=== PATIENT | female | born 2000 | race Caucasian/White ===

== ENCOUNTER 2021-08-12 14:36 | Emergency (ER) | payer OTHER ==
[2021-08-12] MEDS ORDERED: Tetracaine HCl/PF 0.5% 4 ML Bottle EYEBOTH STA (15:59)
[2021-08-12] MEDS ORDERED: Tetracaine HCl/PF 0.5% 4 ML Bottle ONE (16:00)
[2021-08-12 16:35] LABS: BLOOD UREA NITROGEN,BUN 10 mg/dL (7.0-18.0); CHLORIDE,CL 103 mmol/L (98-107); ESTIMATED GFR > 60.0 ml/min; GLUCOSE RANDOM 234 mg/dL (74-106); POTASSIUM,K 4.1 mmol/L (3.5-5.1); SODIUM,NA 141 mmol/L (136-145)
[2021-08-12 17:18] LABS: CORONAVIRUS COVID-19 NAA NEGATIVE (NEGATIVE); INFLUENZA A NAA NEGATIVE (NEGATIVE); INFLUENZA B NAA NEGATIVE (NEGATIVE)
[2021-08-12] MEDS ORDERED: Carboxymethylcellulose Sodium 0.5% Ophth Soln 0.4 ML UD Box of 30 EYELF STA (17:24)
[2021-08-12 17:52] VITALS: BP 138/65; PULSE 83
== END 2021-08-12 17:49 | disposition home or self-care (01) ==
LOC: MW.ED 14:36
DX: G51.0 Bell's palsy (principal); J06.9 Acute upper respiratory infection, unspecified; Z20.822 Contact with and (suspected) exposure to COVID-19
CPT/HCPCS: 0240U; 36415; 71045; 80048; 85025; 99285; 99283

== ENCOUNTER 2021-08-17 15:51 | Emergency (ER) | payer OTHER ==
[2021-08-17] MEDS ORDERED: Acetaminophen/oxyCODONE 325-5 MG Tab PO ONE (17:11)
[2021-08-17 17:41] VITALS: BP 124/70; PULSE 101
== END 2021-08-17 17:29 | disposition home or self-care (01) ==
LOC: MW.ED 15:51
DX: G51.0 Bell's palsy (principal)
CPT/HCPCS: 99283; A9270

== ENCOUNTER 2022-01-24 13:20 | Emergency (ER) | payer OTHER ==
[2022-01-24 14:59] LABS: ACETAMINOPHEN <2.0 ug/mL; BLOOD UREA NITROGEN,BUN 14 mg/dL (7.0-18.0); CARBON DIOXIDE,CO2 28.3 mmol/L (21.0-32.0); CHLORIDE,CL 104 mmol/L (98-107); GLUCOSE RANDOM 113 mg/dL (74-106); POTASSIUM,K 3.9 mmol/L (3.5-5.1); SODIUM,NA 140 mmol/L (136-145)
[2022-01-24 15:02] LABS: ESTIMATED GFR 92 mL/min (>60)
[2022-01-24 16:06] VITALS: BP 141/87; PULSE 91
== END 2022-01-24 16:20 | disposition home or self-care (01) ==
LOC: MW.ED 13:20
DX: F32.9 Major depressive disorder, single episode, unspecified (principal); Z79.899 Other long term (current) drug therapy; Z86.16 Personal history of COVID-19; Z20.822 Contact with and (suspected) exposure to COVID-19
CPT/HCPCS: 36415; 80053; 80143; 80179; 80305-QW; 80307; 81001; 81025; 83735; 84443; 85025; 93005; 93010; 99284; 99285; U0002

== ENCOUNTER 2022-04-06 07:24 | Emergency (ER) | payer OTHER ==
[2022-04-06] MEDS ORDERED: Oxymetazoline 0.05% Nasal Spray 30 ML Bottle NAS ONE (07:38)
[2022-04-06 07:46] VITALS: BP 150/91
[2022-04-06 08:39] VITALS: PULSE 78
== END 2022-04-06 08:38 | disposition home or self-care (01) ==
LOC: MW.ED 07:24
DX: R04.0 Epistaxis (principal); Z79.899 Other long term (current) drug therapy; Z86.16 Personal history of COVID-19
CPT/HCPCS: 30901; 99283

== ENCOUNTER 2022-04-07 07:28 | Emergency (ER) | payer OTHER ==
[2022-04-07 08:59] VITALS: BP 116/68; PULSE 88
== END 2022-04-07 08:58 | disposition home or self-care (01) ==
LOC: MW.ED 07:28
DX: R04.0 Epistaxis (principal); R42 Dizziness and giddiness; F17.210 Nicotine dependence, cigarettes, uncomplicated
CPT/HCPCS: 36415; 85025; 99284

== ENCOUNTER 2022-05-04 03:53 | Emergency (ER) | payer OTHER ==
[2022-05-04] MEDS ORDERED: Acetaminophen 325 MG Tab PO ONE (04:06)
[2022-05-04] MEDS ORDERED: Ibuprofen 600 MG Tab PO ONE (04:06)
[2022-05-04 04:48] LABS: CARBON DIOXIDE,CO2 19.1 mmol/L (21.0-32.0); POTASSIUM,K 3.4 mmol/L (3.5-5.1)
[2022-05-04 05:45] VITALS: BP 141/75; PULSE 88
== END 2022-05-04 05:40 | disposition home or self-care (01) ==
LOC: MW.ED 03:53
DX: J98.8 Other specified respiratory disorders (principal); R07.89 Other chest pain; B97.4 Respiratory syncytial virus as the cause of diseases classified elsewhere
CPT/HCPCS: 36415; 71046; 80053; 85025; 85379; 99283; A9270

== ENCOUNTER 2022-07-13 17:16 | Emergency (ER) | payer OTHER ==
[2022-07-13] MEDS ORDERED: Sodium Chloride 0.9% 1,000 ML IV ONE (17:23)
[2022-07-13 17:34] VITALS: BP 126/70; PULSE 100
[2022-07-13] MEDS ORDERED: Famotidine 20 MG/2 ML SDV IVPUSH ONE (17:36)
[2022-07-13] MEDS ORDERED: Alum Hydro/Mag Hydro/Simeth XS 15 ML, Lidocaine 2% 5 ML PO ONE ×2 (17:36)
[2022-07-13] MEDS ORDERED: Iopamidol 755 MG/ML 500 ML Multipack Bottle IVPUSH STA (18:37)
[2022-07-13] MEDS ORDERED: Acetaminophen 500 MG Tab PO ONE (19:15)
== END 2022-07-13 19:50 | disposition home or self-care (01) ==
LOC: MW.ED 17:16
DX: R10.13 Epigastric pain (principal); R91.1 Solitary pulmonary nodule; Z86.16 Personal history of COVID-19
CPT/HCPCS: 36415; 74177; 84703; 96361; 96374; 99284; A9270; J3490; J7030; Q9967

== ENCOUNTER 2022-07-22 09:02 | Day surgery (SDC) | payer OTHER ==
[~2022-07-22 09:02] MED LIST: Lactated Ringers 1,000 ML IV SCH
[2022-07-22] MEDS ORDERED: Lidocaine 2% 5 ML SDV ONE (09:30)
[2022-07-22] MEDS ORDERED: fentaNYL 100 MCG/2 ML SDV ONE (09:30)
[2022-07-22] MEDS ORDERED: Propofol 200 MG/20 ML SDV ONE (09:30)
[2022-07-22] MEDS ORDERED: Lactated Ringers 1,000 ML IV SCH (11:00)
[2022-07-22 12:06] VITALS: BP 95/50; PULSE 81
== END 2022-07-22 11:25 | disposition home or self-care (01) ==
LOC: MW.SDS 09:02
PROVIDERS: ATTEND Surgery
DX: K29.50 Unspecified chronic gastritis without bleeding (principal); K21.9 Gastro-esophageal reflux disease without esophagitis; F41.0 Panic disorder [episodic paroxysmal anxiety]; F32.A Depression, unspecified; G47.00 Insomnia, unspecified; Z79.899 Other long term (current) drug therapy
CPT/HCPCS: 43239; 81025; J2704; J3010; J7120; J3490

== ENCOUNTER 2023-02-25 22:06 | Emergency (ER) | payer OTHER ==
[2023-02-25 22:49] LABS: APPEARANCE,URINE CLEAR; BILIRUBIN,URINE NEGATIVE (NEGATIVE); COLOR,URINE YELLOW; GLUCOSE,URINE NEGATIVE (NEGATIVE); KETONES,URINE NEGATIVE (NEGATIVE); LEUKOCYTE ESTERASE,URINE NEGATIVE (NEGATIVE); NITRITE,URINE NEGATIVE (NEGATIVE); OCCULT BLOOD,URINE NEGATIVE (NEGATIVE); PROTEIN,URINE NEGATIVE (NEGATIVE); UROBILINOGEN,URINE 0.2 EU/dL (<2.0)
[2023-02-25] MEDS ORDERED: Sucralfate Suspension 1 GM/10 ML Cup PO ONE (23:50)
[2023-02-25] MEDS ORDERED: Sodium Chloride 0.9% 2.5 ML Syringe FLUSH PRN (23:50)
[2023-02-25] MEDS ORDERED: Sodium Chloride 0.9% 10 ML Syringe FLUSH PRN (23:50)
[2023-02-25] MEDS ORDERED: Famotidine 20 MG/2 ML SDV IVPUSH ONE (23:50)
[2023-02-25] MEDS ORDERED: Dicyclomine 10 MG Cap PO ONE (23:50)
[2023-02-25] MEDS ORDERED: Ondansetron 4 MG/2 ML SDV IVPUSH ONE (23:50)
[2023-02-26 00:48] LABS: BASOPHILS PERCENT AUTO 0.2 % (0.0-1.5); EOSINOPHILS PERCENT AUTO 0.5 % (0.0-7.0); HEMOGLOBIN 11.5 g/dL (12.0-16.0); LYMPHOCYTES ABSOLUTE AUTO 3.5 K/uL (0.6-2.4); LYMPHOCYTES PERCENT AUTO 39.6 % (16.0-40.0); MEAN CORPUSCULAR HGB CONC 32.9 g/dL (31.0-37.0); MEAN CORPUSCULAR VOLUME 88.4 fL (80.0-98.0); MONOCYTES ABSOLUTE AUTO 0.6 K/uL (0.0-0.8); MONOCYTES PERCENT AUTO 6.4 % (0.0-15.0); NEUTROPHILS ABSOLUTE AUTO 4.7 K/uL (1.4-5.7); NEUTROPHILS PERCENT AUTO 53.3 % (48.0-80.0); NRBC ABSOLUTE 0 K/uL; PLATELET COUNT,PLT 400 K/uL (150-400); RED BLOOD CELL COUNT 3.96 M/uL (4.30-5.90); WHITE BLOOD CELL COUNT,WBC 8.81 K/uL (4.0-11.0)
[2023-02-26 01:08] LABS: A/G RATIO 0.9 (0.9-1.6); ALBUMIN 3.3 g/dL (3.4-5.0); BILIRUBIN TOTAL 0.1 mg/dL (0.2-1.0); CALCIUM 8.6 mg/dL (8.5-10.1); CARBON DIOXIDE,CO2 22.6 mmol/L (21.0-32.0); EST CRCL DRUG DOSING (CG) 71.76 mL/min; POTASSIUM,K 3.5 mmol/L (3.5-5.1); PROTEIN TOTAL,TP 7.2 g/dL (6.4-8.2)
[2023-02-26] MEDS ORDERED: Ketorolac 30 MG/ML SDV IVPUSH ONE ×2 (01:33→02:08)
[2023-02-26] MEDS ORDERED: Naloxone 0.4 MG/ML SDV IVPUSH PRN (01:33)
[2023-02-26] MEDS ORDERED: Morphine 2 MG/ML SYRINGE IVPUSH ONE (01:33)
[2023-02-26] MEDS ORDERED: Iopamidol 755 MG/ML 500 ML Multipack Bottle IVPUSH ONE (02:01)
[2023-02-26 03:21] VITALS: BP 116/72; PULSE 71
== END 2023-02-26 03:27 | disposition home or self-care (01) ==
LOC: MW.ED 22:06
DX: N20.0 Calculus of kidney (principal); Z86.16 Personal history of COVID-19
CPT/HCPCS: 36415; 74177; 80053; 81003; 81025; 83690; 85025; 96374; 96375; 99284; A9270; J1885; J2270; J2405; J3490; Q9967

== ENCOUNTER 2023-04-25 23:21 | Emergency (ER) | payer BC, OTHER ==
[2023-04-25 23:44] LABS: APPEARANCE,URINE CLEAR; BILIRUBIN,URINE NEGATIVE (NEGATIVE); COLOR,URINE YELLOW; GLUCOSE,URINE NEGATIVE (NEGATIVE); KETONES,URINE NEGATIVE (NEGATIVE); LEUKOCYTE ESTERASE,URINE NEGATIVE (NEGATIVE); NITRITE,URINE NEGATIVE (NEGATIVE); OCCULT BLOOD,URINE NEGATIVE (NEGATIVE); PROTEIN,URINE NEGATIVE (NEGATIVE); UROBILINOGEN,URINE 0.2 EU/dL (<2.0)
[2023-04-25] MEDS ORDERED: Ketorolac 30 MG/ML SDV IVPUSH ONE (23:57)
[2023-04-26 00:22] LABS: A/G RATIO 1.1 (0.9-1.6); ALANINE AMINOTRANSFERASE,ALT 25 IU/L (14-63); ALBUMIN 3.6 g/dL (3.4-5.0); ALKALINE PHOSPHATASE 63 U/L (46-116); ASPARTATE AMNIOTRANSFERASE,AST 14 IU/L (15-37); BILIRUBIN TOTAL 0.4 mg/dL (0.2-1.0); BLOOD UREA NITROGEN,BUN 12 mg/dL (7.0-18.0); CALCIUM 9.1 mg/dL (8.5-10.1); CHLORIDE,CL 105 mmol/L (98-107); CREATININE 0.8 mg/dL (0.6-1.0); GLUCOSE RANDOM 97 mg/dL (74-106); LIPASE 62 U/L (16-77); POTASSIUM,K 3.2 mmol/L (3.5-5.1); SODIUM,NA 138 mmol/L (136-145)
[2023-04-26 00:26] LABS: ESTIMATED GFR 105 mL/min (>60); HCG QUANTITATIVE < 1.0 mIU/mL
[2023-04-26 00:28] LABS: BASOPHILS ABSOLUTE AUTO 0.04 K/uL (0.00-0.20); BASOPHILS PERCENT AUTO 0.5 % (0.0-1.0); EOSINOPHILS ABSOLUTE AUTO 0.03 K/uL (0.00-0.45); EOSINOPHILS PERCENT AUTO 0.4 % (0.0-6.0); HEMATOCRIT 34.5 % (37.0-47.0); HEMOGLOBIN 11.8 g/dL (12.0-16.0); IMMATURE GRAN ABSOLUTE AUTO 0.02 K/uL (0.00-0.05); IMMATURE GRAN PERCENT AUTO 0.2 % (0.0-0.4); LYMPHOCYTES ABSOLUTE AUTO 2.24 K/uL (1.00-4.80); LYMPHOCYTES PERCENT AUTO 27.3 % (24.0-44.0); MEAN CORPUSCULAR HEMOGLOBIN 29.1 pg (28.0-32.0); MEAN CORPUSCULAR HGB CONC 34.2 g/dL (32.0-36.0); MEAN CORPUSCULAR VOLUME 85.2 fL (83.0-99.0); MEAN PLATELET VOLUME 10.8 fL (9.4-12.3); MONOCYTES ABSOLUTE AUTO 0.63 K/uL (0.00-0.80); MONOCYTES PERCENT AUTO 7.7 % (0.0-8.0); NEUTROPHILS ABSOLUTE AUTO 5.25 K/uL (1.80-7.70); NEUTROPHILS PERCENT AUTO 63.9 % (41.0-71.0); PLATELET COUNT,PLT 326 K/uL (150-400); RED BLOOD CELL COUNT 4.05 M/uL (4.10-5.30); WHITE BLOOD CELL COUNT,WBC 8.21 K/uL (3.9-11.3)
[2023-04-26] MEDS ORDERED: Iopamidol 755 MG/ML 500 ML Multipack Bottle IVPUSH ONE (00:43)
[2023-04-26] MEDS ORDERED: Potassium Chloride 20 MEQ Tab.ER PO ONE (00:54)
[2023-04-26 01:45] VITALS: BP 122/73; PULSE 69
== END 2023-04-26 01:43 | disposition home or self-care (01) ==
LOC: MW.ED 23:21
DX: R10.9 Unspecified abdominal pain (principal); Z86.16 Personal history of COVID-19
CPT/HCPCS: 36415; 74177; 80053; 81003; 83690; 84702; 85025; 96374; 99284; A9270; J1885; Q9967

== ENCOUNTER 2023-12-17 12:03 | Emergency (ER) | payer BC | END 2023-12-17 13:05 | disposition left against medical advice (07) | LOC: MW.ED 12:03 | DX: Z53.21 Procedure and treatment not carried out due to patient leaving prior to being seen by health care provider (principal) ==

== ENCOUNTER 2024-03-28 22:36 | Emergency (ER) | payer BC ==
[2024-03-28 22:59] LABS: BASOPHILS ABSOLUTE AUTO 0.05 K/uL (0.00-0.20); BASOPHILS PERCENT AUTO 0.4 % (0.0-1.0); EOSINOPHILS ABSOLUTE AUTO 0.09 K/uL (0.00-0.45); EOSINOPHILS PERCENT AUTO 0.8 % (0.0-6.0); HEMATOCRIT 37.1 % (37.0-47.0); HEMOGLOBIN 12.4 g/dL (12.0-16.0); IMMATURE GRAN ABSOLUTE AUTO 0.05 K/uL (0.00-0.05); IMMATURE GRAN PERCENT AUTO 0.4 % (0.0-0.4); LYMPHOCYTES PERCENT AUTO 29.6 % (24.0-44.0); MEAN CORPUSCULAR HEMOGLOBIN 31.4 pg (28.0-32.0); MEAN CORPUSCULAR HGB CONC 33.4 g/dL (32.0-36.0); MEAN CORPUSCULAR VOLUME 93.9 fL (83.0-99.0); MEAN PLATELET VOLUME 10.1 fL (9.4-12.3); MONOCYTES ABSOLUTE AUTO 0.92 K/uL (0.00-0.80); MONOCYTES PERCENT AUTO 7.8 % (0.0-8.0); PLATELET COUNT,PLT 262 K/uL (150-400); RED BLOOD CELL COUNT 3.95 M/uL (4.10-5.30); WHITE BLOOD CELL COUNT,WBC 11.81 K/uL (3.9-11.3)
[2024-03-28] MEDS ORDERED: Ondansetron 4 MG/2 ML SDV IVPUSH ONE (23:25)
[2024-03-28 23:37] LABS: ALANINE AMINOTRANSFERASE,ALT 42 IU/L (14-63); ALBUMIN 3.4 g/dL (3.4-5.0); ALKALINE PHOSPHATASE 70 U/L (46-116); ASPARTATE AMNIOTRANSFERASE,AST 21 IU/L (15-37); BILIRUBIN TOTAL 0.2 mg/dL (0.2-1.0); BLOOD UREA NITROGEN,BUN 13 mg/dL (7.0-18.0); CALCIUM 9.2 mg/dL (8.5-10.1); CARBON DIOXIDE,CO2 28.7 mmol/L (21.0-32.0); CHLORIDE,CL 103 mmol/L (98-107); CREATININE 0.7 mg/dL (0.6-1.0); EST CRCL DRUG DOSING (CG) 101.63 mL/min; GLUCOSE RANDOM 90 mg/dL (74-106); LIPASE 57 U/L (16-77); POTASSIUM,K 3.8 mmol/L (3.5-5.1); PRO B-TYPE NATRIUR PEPT,BNPPRO 142 pg/mL (0-125); PROTEIN TOTAL,TP 6.8 g/dL (6.4-8.2); SODIUM,NA 141 mmol/L (136-145)
[2024-03-28 23:41] LABS: ESTIMATED GFR 123 mL/min (>60)
[2024-03-29] MEDS: Sodium Chloride 0.9% 1,000 ML IV ONE (00:22)
[2024-03-29] MEDS: Famotidine 20 MG/2 ML SDV IVPUSH ONE (00:23)
[2024-03-29] MEDS: Sodium Chloride 0.9% 10 ML Syringe FLUSH PRN (00:24)
[2024-03-29] MEDS: Ondansetron 4 MG/2 ML SDV IVPUSH ONE (00:24)
[2024-03-29] MEDS: Promethazine 25 MG/ML SDV IM ONE (00:52)
[2024-03-29 01:05] LABS: APPEARANCE,URINE CLEAR; BILIRUBIN,URINE NEGATIVE (NEGATIVE); COLOR,URINE YELLOW; GLUCOSE,URINE NEGATIVE (NEGATIVE); KETONES,URINE NEGATIVE (NEGATIVE); LEUKOCYTE ESTERASE,URINE NEGATIVE (NEGATIVE); NITRITE,URINE POSITIVE (NEGATIVE); OCCULT BLOOD,URINE NEGATIVE (NEGATIVE); PROTEIN,URINE NEGATIVE (NEGATIVE); UROBILINOGEN,URINE 0.2 EU/dL (<2.0)
[2024-03-29] MEDS: Morphine 2 MG/ML SYRINGE IVPUSH ONE (01:08)
[2024-03-29 01:18] LABS: BACTERIA,URINE NOT SEEN (NEGATIVE); EPITHELIAL CELLS,URINE RARE (NONE-FEW); RBC,URINE NONE SEEN (0-2/HPF); WBC,URINE NONE SEEN (0-5/HPF)
[2024-03-29 03:03] VITALS: BP 118/81; PULSE 92
== END 2024-03-29 03:02 | disposition home or self-care (01) ==
LOC: MW.ED 22:36
DX: O99.611 Diseases of the digestive system complicating pregnancy, first trimester (principal); K80.20 Calculus of gallbladder without cholecystitis without obstruction; Z86.16 Personal history of COVID-19; Z90.89 Acquired absence of other organs; Z79.899 Other long term (current) drug therapy; Z3A.01 Less than 8 weeks gestation of pregnancy
CPT/HCPCS: 36415; 76705; 80053; 81001; 83690; 83880; 84484; 84703; 85025; 93005; 96361; 96372; 96374; 96375; 99285; J2270; J2405; J2550; J3490; J7030; 93010; 99283

== ENCOUNTER 2024-05-05 15:56 | Emergency (ER) | payer BC ==
[2024-05-05 16:20] LABS: BASOPHILS ABSOLUTE AUTO 0.03 K/uL (0.00-0.20); BASOPHILS PERCENT AUTO 0.3 % (0.0-1.0); HEMATOCRIT 36.6 % (37.0-47.0); HEMOGLOBIN 12.6 g/dL (12.0-16.0); IMMATURE GRAN ABSOLUTE AUTO 0.03 K/uL (0.00-0.05); IMMATURE GRAN PERCENT AUTO 0.3 % (0.0-0.4); LYMPHOCYTES ABSOLUTE AUTO 2.47 K/uL (1.00-4.80); LYMPHOCYTES PERCENT AUTO 23.7 % (24.0-44.0); MEAN CORPUSCULAR HEMOGLOBIN 31.4 pg (28.0-32.0); MEAN CORPUSCULAR HGB CONC 34.4 g/dL (32.0-36.0); MEAN CORPUSCULAR VOLUME 91.3 fL (83.0-99.0); MEAN PLATELET VOLUME 9.6 fL (9.4-12.3); MONOCYTES ABSOLUTE AUTO 0.58 K/uL (0.00-0.80); MONOCYTES PERCENT AUTO 5.6 % (0.0-8.0); NEUTROPHILS ABSOLUTE AUTO 7.21 K/uL (1.80-7.70); NEUTROPHILS PERCENT AUTO 69.1 % (41.0-71.0); PLATELET COUNT,PLT 354 K/uL (150-400); RED BLOOD CELL COUNT 4.01 M/uL (4.10-5.30); WHITE BLOOD CELL COUNT,WBC 10.42 K/uL (3.9-11.3)
[2024-05-05 17:02] LABS: A/G RATIO 0.8 (0.9-1.6); BILIRUBIN TOTAL 0.2 mg/dL (0.2-1.0); CALCIUM 9.1 mg/dL (8.5-10.1); CARBON DIOXIDE,CO2 27.1 mmol/L (21.0-32.0); CREATININE 0.6 mg/dL (0.6-1.0); EST CRCL DRUG DOSING (CG) 118.57 mL/min; POTASSIUM,K 3.5 mmol/L (3.5-5.1); PROTEIN TOTAL,TP 6.9 g/dL (6.4-8.2)
[2024-05-05 18:19] LABS: APPEARANCE,URINE CLEAR; BILIRUBIN,URINE NEGATIVE (NEGATIVE); COLOR,URINE YELLOW; GLUCOSE,URINE NEGATIVE (NEGATIVE); KETONES,URINE NEGATIVE (NEGATIVE); LEUKOCYTE ESTERASE,URINE NEGATIVE (NEGATIVE); NITRITE,URINE NEGATIVE (NEGATIVE); OCCULT BLOOD,URINE TRACE-INTACT (NEGATIVE); PROTEIN,URINE NEGATIVE (NEGATIVE); UROBILINOGEN,URINE 0.2 EU/dL (<2.0)
[2024-05-05 18:29] LABS: BACTERIA,URINE RARE (NEGATIVE); EPITHELIAL CELLS,URINE FEW (NONE-FEW); RBC,URINE 0-2 (0-2/HPF); WBC,URINE 0-1 (0-5/HPF)
[2024-05-05 19:03] VITALS: BP 110/65; PULSE 94
== END 2024-05-05 19:02 | disposition home or self-care (01) ==
LOC: MW.ED 15:56
DX: O20.0 Threatened abortion (principal); Z77.22 Contact with and (suspected) exposure to environmental tobacco smoke (acute) (chronic); Z75.8 Other problems related to medical facilities and other health care; Z79.899 Other long term (current) drug therapy; Z3A.12 12 weeks gestation of pregnancy
CPT/HCPCS: 36415; 76801; 76801-26; 80053; 81001; 84702; 85025; 86900; 86901; 99283; 99284

== ENCOUNTER 2024-11-01 00:07 | Inpatient (IN) | payer MEDICAID ==
[2024-11-01] MEDS ORDERED: Butorphanol 1 MG/ML SDV IVPUSH PRN (00:15)
[2024-11-01] MEDS ORDERED: Oxytocin/0.9 % Sodium Chloride 30 UNIT/500 ML BAG IV SCH (00:15)
[2024-11-01] MEDS ORDERED: Methylergonovine 0.2 MG/1 ML Amp IM PRN (00:15)
[2024-11-01] MEDS ORDERED: Sodium Chloride 0.9% 20 ML SDV IV PRN (00:15)
[2024-11-01] MEDS ORDERED: Misoprostol 25 MCG (1/4 of 100 MCG) Tab VAG PRN (00:15)
[2024-11-01] MEDS ORDERED: Lidocaine 1% 50 ML MDV INJECT PRN (00:15)
[2024-11-01] MEDS ORDERED: Terbutaline 1 MG/ML SDV SUBCUT PRN (00:15)
[2024-11-01] MEDS ORDERED: Sodium Chloride 0.9% 2.5 ML Syringe FLUSH PRN (00:15)
[2024-11-01] MEDS ORDERED: Water For Irrigation,Sterile 1,000 ML Container IRR PRN (00:15)
[2024-11-01] MEDS ORDERED: Carboprost Tromethamine 250 MCG/1 mL Vial IM PRN (00:15)
[2024-11-01] MEDS ORDERED: Misoprostol 200 MCG Tab PO PRN (00:15)
[2024-11-01] MEDS ORDERED: Sodium Chloride 0.9% 10 ML Syringe FLUSH PRN (00:15)
[2024-11-01] MEDS ORDERED: Misoprostol 25 MCG (1/4 of 100 MCG) Tab PO ONE (00:22)
[2024-11-01] MEDS: Lactated Ringers 1,000 ML IV SCH (01:02)
[2024-11-01] MEDS: Ampicillin 2 GM in Sodium Chloride 0.9% 100 ML IV ONE (01:05)
[2024-11-01 01:10] LABS: HEMATOCRIT 35.8 % (37.0-47.0); HEMOGLOBIN 11.5 g/dL (12.0-16.0); MEAN CORPUSCULAR HEMOGLOBIN 27.4 pg (28.0-32.0); MEAN CORPUSCULAR HGB CONC 32.1 g/dL (32.0-36.0); MEAN CORPUSCULAR VOLUME 85.4 fL (83.0-99.0); MEAN PLATELET VOLUME 10.3 fL (9.4-12.3); PLATELET COUNT,PLT 300 K/uL (150-400); RED BLOOD CELL COUNT 4.19 M/uL (4.10-5.30); WHITE BLOOD CELL COUNT,WBC 11.82 K/uL (3.9-11.3)
[2024-11-01] MEDS: Misoprostol 25 MCG (1/4 of 100 MCG) Tab VAG PRN (01:36)
[2024-11-01] MEDS ORDERED: 50% Dextrose in Water 50 ML Syringe IVPUSH PRN ×3 (02:49→04:33)
[2024-11-01] MEDS ORDERED: Glucagon,Human Recombinant 1 MG Vial IM PRN ×3 (02:49→04:33)
[2024-11-01] MEDS: Insulin Regular, Human 100 Units/ML 10 ML Vial SUBCUT STA ×2 (03:16→03:58)
[2024-11-01] MEDS ORDERED: ePHEDrine 50 MG/ML SDV IVPUSH PRN (04:17)
[2024-11-01] MEDS ORDERED: dexmedeTOMIDine HCl 200 MCG/2 ML SDV EPIDUR SCH (04:30)
[2024-11-01] MEDS: Ampicillin 1 GM in Sodium Chloride 0.9% 50 ML IV SCH (04:58)
[2024-11-01] MEDS: Dextrose 5%-0.9% NaCl 1,000 ML IV SCH (05:20)
[2024-11-01] MEDS: Insulin Regular in 0.9 % NACL 100 ML IV SCH (05:24)
[2024-11-01] MEDS: Oxytocin/0.9 % Sodium Chloride 30 UNIT/500 ML BAG IV SCH (06:08)
[2024-11-01] MEDS: Ropivacaine HCl/PF 400 MG in Premix Bag 1 BAG EPIDUR SCH (10:37)
[2024-11-01] MEDS: Phenylephrine HCl In 0.9% NaCl 1 MG/10 ML Syringe IVPUSH PRN (11:01)
[2024-11-01] MEDS ORDERED: fentaNYL 100 MCG/2 ML SDV ONE (11:06)
[2024-11-01] MEDS ORDERED: Bupivacaine 0.25% 10 ML SDV ONE (11:07)
[2024-11-01] MEDS: Ondansetron 4 MG/2 ML SDV IVPUSH PRN (11:18)
[2024-11-01] MEDS: Docusate Sodium 100 MG Cap PO PRN (14:45)
[2024-11-01] MEDS: Acetaminophen 500 MG Tab PO PRN (14:45)
[2024-11-01] MEDS: Witch Hazel Medicated Pads 40/Jar TOP PRN (14:46)
[2024-11-01] MEDS: Lanolin 100% Cream 7 GM Tube TOP PRN (14:46)
[2024-11-01] MEDS: Benzocaine/Menthol 20%-0.5% Spray 78 GM Cannister TOP PRN (14:46)
[2024-11-02] MEDS: Ibuprofen 800 MG Tab PO PRN (02:17)
[2024-11-02 06:03] LABS: HEMATOCRIT 32.2 % (37.0-47.0); HEMOGLOBIN 10.5 g/dL (12.0-16.0)
[2024-11-02 06:35] LABS: A/G RATIO 0.6 (0.9-1.6); ALBUMIN 2.1 g/dL (3.4-5.0); BILIRUBIN TOTAL 0.2 mg/dL (0.2-1.0); CARBON DIOXIDE,CO2 23.4 mmol/L (21.0-32.0); CREATININE 0.8 mg/dL (0.6-1.0); EST CRCL DRUG DOSING (CG) 88.93 mL/min; POTASSIUM,K 3.9 mmol/L (3.5-5.1); PROTEIN TOTAL,TP 5.5 g/dL (6.4-8.2)
[2024-11-02 14:54] VITALS: BP 135/78; PULSE 104
== END 2024-11-02 16:20 | disposition home or self-care (01) | DRG 807 ==
LOC: MW.OBCHECK 00:07 → MW.OB 00:10 → MW.OBCHECK 00:15 → OBSVTOIN 12:30 → MW.OB 18:10
PROVIDERS: ADMIT Obstetrics & Gynecology Gynecology; ATTEND Obstetrics & Gynecology Gynecology
PROC: 10E0XZZ Delivery of Products of Conception, External Approach (ICD-10-PCS; principal; 2024-11-01)
PROC: 10907ZC Drainage of Amniotic Fluid, Therapeutic from Products of Conception, Via Natural or Artificial Opening (ICD-10-PCS; 2024-11-01)
PROC: 3E0R3BZ Introduction of Anesthetic Agent into Spinal Canal, Percutaneous Approach (ICD-10-PCS; 2024-11-01)
PROC: 00HU33Z Insertion of Infusion Device into Spinal Canal, Percutaneous Approach (ICD-10-PCS; 2024-11-01)
PROC: 4A1HXCZ Monitoring of Products of Conception, Cardiac Rate, External Approach (ICD-10-PCS; 2024-11-01)
DX: O24.429 Gestational diabetes mellitus in childbirth, unspecified control (principal); Z37.0 Single live birth; Z3A.37 37 weeks gestation of pregnancy; O99.214 Obesity complicating childbirth; O99.02 Anemia complicating childbirth; O66.0 Obstructed labor due to shoulder dystocia; O99.62 Diseases of the digestive system complicating childbirth; E66.01 Morbid (severe) obesity due to excess calories; K80.20 Calculus of gallbladder without cholecystitis without obstruction; O69.81X0 Labor and delivery complicated by cord around neck, without compression, not applicable or unspecified
CPT/HCPCS: 01967; 36415; 59025; 59409; 80053; 82947; 85014; 85018; 85027; 86592; 86850; 86900; 86901; A9270-GY; J0290; J0665; J1815-GY; J2371; J2405; J2590; J2795; J3010; J7042; J7120

== ENCOUNTER 2025-03-10 06:34 | Day surgery (SDC) | payer MEDICAID ==
[~2025-03-10 06:34] MED LIST changes: -Lactated Ringers 1,000 ML IV SCH; +ceFAZolin 2 GM in Water For Injection, Sterile 20 ML IV ONE
[2025-03-10] MEDS ORDERED: Ropivacaine 0.5% 5 MG/ML 30 ML SDV ONE (06:54)
[2025-03-10] MEDS ORDERED: fentaNYL 100 MCG/2 ML SDV ONE ×2 (06:55→08:39)
[2025-03-10] MEDS ORDERED: Propofol 200 MG/20 ML SDV ONE (06:56)
[2025-03-10] MEDS ORDERED: dexmedeTOMIDine HCl 200 MCG/2 ML SDV ONE (06:56)
[2025-03-10] MEDS ORDERED: Naloxone 0.4 MG/ML SDV IVPUSH PRN (07:14)
[2025-03-10] MEDS ORDERED: Albuterol 0.083% 2.5 MG/3 ML Neb Soln NEB PRN (07:14)
[2025-03-10] MEDS ORDERED: Ondansetron 4 MG/2 ML SDV IVPUSH PRN (07:14)
[2025-03-10] MEDS ORDERED: fentaNYL 50 MCG/ML SDV IVPUSH PRN (07:14)
[2025-03-10] MEDS ORDERED: propofoL 500 MG/50 ML 50 ML ONE ×3 (07:24→08:48)
[2025-03-10] MEDS: Lactated Ringers 1,000 ML IV SCH (07:25)
[2025-03-10] MEDS ORDERED: Dexamethasone 4 MG/ML 5 ML MDV ONE (08:17)
[2025-03-10] MEDS ORDERED: Ondansetron 4 MG/2 ML SDV ONE ×2 (08:17→10:55)
[2025-03-10] MEDS ORDERED: ceFAZolin 3 GM Vial ONE (08:18)
[2025-03-10] MEDS ORDERED: Indocyanine Green 25 MG SDV ONE (08:19)
[2025-03-10] MEDS ORDERED: Ketorolac 30 MG/ML SDV ONE (09:06)
[2025-03-10] MEDS ORDERED: Acetaminophen/HYDROcodone 325-5 MG Tab PO PRN (09:36)
[2025-03-10] MEDS ORDERED: Lactated Ringers 1,000 ML IV SCH (09:45)
[2025-03-10 12:21] VITALS: BP 128/90; PULSE 76
== END 2025-03-10 11:45 | disposition home or self-care (01) ==
LOC: MW.SDS 06:34
PROVIDERS: ATTEND Surgery
DX: K80.10 Calculus of gallbladder with chronic cholecystitis without obstruction (principal); K82.8 Other specified diseases of gallbladder; E66.01 Morbid (severe) obesity due to excess calories; Z68.42 Body mass index [BMI] 45.0-49.9, adult
CPT/HCPCS: 00790; 64488; 81025; J0665; J0690; J1100; J1171; J1885; J2405; J2704; J2795; J3010; J3490; J7120